=== PATIENT | female | born 1965 | race Caucasian/White ===

== ENCOUNTER 2019-03-17 20:24 | Emergency (ER) | payer OTHER ==
--- NOTE | 2019-03-17 21:00 | NUR ---
PT BIB [facility] FOR ETOH INTOXICATION. PT GIVING DIFFERENT NAME AND THAN THAT LISTED. ATTEMPTED TO CALL SPOUSE AT [phone] AND [phone]
--- NOTE | 2019-03-17 21:18 | NUR ---
UNABLE TO COMPLETE TRIAGE AND ASSESSMENT AT THIS TIME. PT SLURRING WORDS AND UNABLE TO ANSWER RN QUESTIONS. ATTEMPTED TO REORIENT PT TO PERSON, PLACE, TIME AND SITUATION. PT MUMBLES "NO,NO,NO." PT REPOSITIONED ON GURNEY AND PROVIDED W/ BLANKET. MONITORS IN PLACE.
--- NOTE | 2019-03-17 21:42 | NUR ---
PT REQUIRES FREQUENT REORIENTATION, SITTING UP IN GURNEY YELLING PROFANITY AT VENU, SPOUSE, NOT AT BEDSIDE AT THIS TIME. PT UNABLE TO ANSWER RN QUESTIONS.
--- NOTE | 2019-03-17 21:53 | NUR ---
PT FOUND STUMBLING OUT INTO HALLWAY, CAUGHT AND RETURNED TO [facility]. PT YELLING "DONT CALL VENU, HE IS A DRUNK TOO AND I HATE HIM." PT BACK IN [facility]. SNOW RANGER AT BEDSIDE FOR FALL PRECAUTIONS
--- NOTE | 2019-03-17 22:41 | NUR ---
PT RESTING QUIETLY AT THIS TIME W/ MATERIAL EXPEDITOR AT BEDSIDE.
[2019-03-17 23:37] VITALS: BP 91/46
--- NOTE | 2019-03-17 23:43 | NUR ---
SPOUSE ARRIVED, STATES PT "DRINKS HEAVILY" EVERY DAY. CALLED [facility] TODAY AFTER HEARING PT FALL IN KITCHEN AND UNABLE TO PICK HER UP. SPOUSE DENIES ANY MEDICAL HX OTHER THAN ETOH ABUSE, DENIES PT TAKING ANY DAILY MEDICATIONS. ERP UPDATED ON PT CONDITION, VERBAL OKAY TO DISCHARGE PT HOME W/ SPOUSE. REVIEWED DISCHARGE INSTRUCTIONS W/ SPOUSE. PT STATED "I DON'T NEED THAT" AND PUSHED RN HAND AWAY. PT ASSISTED INTO WC, TAKEN TO BR BY SPOUSE, DISCHARGE HOME W/ SPOUSE.
== END 2019-03-17 23:49 | disposition home or self-care (01) ==
LOC: ED 23:00 → EDBD 23:00 → ED 23:49
DX: F10.120 Alcohol abuse with intoxication, uncomplicated (principal)
CPT/HCPCS: 99283